=== PATIENT | female | born 1940 | race Caucasian/White ===

== ENCOUNTER 2017-06-30 15:32 | Emergency (ER) | payer MEDICARE, OTHER ==
[~2017-06-30] VITALS: Ht 157.5 cm; Wt 72.6 kg
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
[2017-06-30] MEDS ORDERED: ONDANSETRON 4 MG (ZOFRAN) ORAL DISSOLVE TAB PO ONE (16:00)
[2017-06-30] MEDS ORDERED: TETANUS,DIPTH,PERTUSS P/F (BOOSTRIX) 0.5 ML VIAL IM ONE (16:00)
[2017-06-30] MEDS ORDERED: LISINOPRIL (16:22)
[2017-06-30] MEDS ORDERED: ACETAMINOPHEN 500 MG TAB (TYLENOL) PO ONE (16:45)
--- NOTE | 2017-06-30 16:59 | Diagnostic Imaging Report ---
PROCEDURE: CT head, face, and cervical spine without contrast. TECHNIQUE: Multiple contiguous axial images were obtained through the head, neck, and facial bones without the use of intravenous contrast. Sagittal and coronal reformations through the cervical spine and facial bones were also performed. INDICATION: Head and neck pain. COMPARISON: None. CT HEAD: Ventricles are normal in size, shape and position. There is no midline shift or mass effect. There is no hemorrhage or evidence of acute ischemia. Nasal bone fracture is present. There is deviation of the nasal bone and septum. Paranasal sinuses and mastoids are clear. There is no skull fracture. IMPRESSION: 1. No acute intracranial abnormality. 2. Nasal bone fracture. CT CERVICAL SPINE: Alignment is normal. There is no subluxation or fracture. Mild degenerative changes are seen throughout the disc spaces and facet joints. No osseous lesion. IMPRESSION: 1. No traumatic malalignment or fracture. 2. Not mentioned above, thyroid enlargement. CT FACE: There is deviated bilateral nasal bone fracture. Nasal septum is deviated to the left. The orbits are symmetric. No additional fracture is seen. There is no air-fluid level. Temporomandibular joints are intact. IMPRESSION: Deviated nasal septum and nasal bone fractures. Dictated by: Dictated on workstation # [id number]
[2017-06-30 17:22] VITALS: BP 174/85
[2017-06-30] MEDS ORDERED: AMOX875T2 PO (17:34)
== END 2017-06-30 17:22 | disposition home or self-care (01) ==
LOC: ER 15:35
DX: S06.9X0A Unspecified intracranial injury without loss of consciousness, initial encounter (principal); S02.2XXA Fracture of nasal bones, initial encounter for closed fracture; S16.1XXA Strain of muscle, fascia and tendon at neck level, initial encounter; R40.2142 Coma scale, eyes open, spontaneous, at arrival to emergency department; R40.2252 Coma scale, best verbal response, oriented, at arrival to emergency department; R40.2362 Coma scale, best motor response, obeys commands, at arrival to emergency department; F17.210 Nicotine dependence, cigarettes, uncomplicated; Z90.49 Acquired absence of other specified parts of digestive tract; Z90.710 Acquired absence of both cervix and uterus; Z87.81 Personal history of (healed) traumatic fracture; Z88.2 Allergy status to sulfonamides; Z85.3 Personal history of malignant neoplasm of breast; Z98.890 Other specified postprocedural states; Z23 Encounter for immunization; W18.09XA Striking against other object with subsequent fall, initial encounter
CPT/HCPCS: 70450; 70486; 72125; 90471; 90715